=== PATIENT | female | born 1995 | race African-American/Black ===

== ENCOUNTER 2018-09-22 10:54 | Emergency (ER) | payer OTHER ==
[~2018-09-22] VITALS: Ht 167.6 cm; Wt 58.5 kg
[2018-09-22 11:17] LABS: URINE BILIRUBIN NEGATIVE (Negative); URINE BLOOD NEGATIVE (Negative); URINE CLARITY CLEAR; URINE COLOR YELLOW; URINE GLUCOSE-RANDOM* NEGATIVE (Negative); URINE KETONES 3+ (Negative); URINE LEUKOCYTES-REFLEX NEGATIVE (Negative); URINE NITRITE-REFLEX NEGATIVE (Negative); URINE PROTEIN (DIPSTICK) NEGATIVE (Negative); URINE SPECIFIC GRAVITY >= 1.030 (1.005-1.035); URINE UROBILINOGEN 0.2 E.U./dl (0.2-1.0)
[2018-09-22 11:24] LABS: URINE REDUCING SUBSTANCE NEGATIVE
[2018-09-22 11:29] LABS: WBC 7.4 thou/uL (4.0-11.0)
[2018-09-22 11:31] LABS: ABSOLUTE NEUTROPHILS 5.3 thou/uL (1.4-8.2); BASOPHILS 0.6 % (0.0-2.0); EOSINOPHILS 0.3 % (0.0-3.0); HEMATOCRIT 42.9 % (37.0-47.0); HEMOGLOBIN 14.7 gm/dL (12.0-15.0); LYMPHOCYTES 20.3 % (24.0-44.0); MCH 28.8 pg (26.0-34.0); MCHC 34.2 g/dL (28.0-37.0); MCV 84.4 fL (80.0-100.0); MONOCYTES 6.7 % (1.0-8.0); PLATELET COUNT 323 thou/uL (150-400); POLYS 72.1 % (36.0-66.0); RBC 5.09 mil/uL (4.20-5.00); RDW 13.7 % (10.5-14.5)
[2018-09-22 11:36] LABS: CALCIUM 9.7 mg/dL (8.5-10.1); CREATININE 0.7 mg/dL (0.6-1.0); POTASSIUM 3.7 mmol/L (3.5-5.1)
[2018-09-22 11:42] LABS: TOTAL PROTEIN 8.3 g/dL (6.4-8.2)
[2018-09-22] MEDS ORDERED: BENTYL 20 MG TA20 M1 PO (14:11)
[2018-09-22] MEDS ORDERED: ZOFRAN ODT4 MG PO (14:11)
[2018-09-22 14:32] VITALS: BP 124/67
== END 2018-09-22 14:33 | disposition home or self-care (01) ==
LOC: ER 10:54
PROVIDERS: Physician Assistant
DX: E80.6 Other disorders of bilirubin metabolism (principal); R19.7 Diarrhea, unspecified; R11.2 Nausea with vomiting, unspecified; R10.11 Right upper quadrant pain; R10.13 Epigastric pain